=== PATIENT | male | born 1960 | race Caucasian/White ===

== ENCOUNTER 2019-04-15 10:14 | Emergency (ER) | payer BC, OTHER ==
[~2019-04-15] VITALS: Ht 177.8 cm; Wt 111.1 kg
[2019-04-15 12:09] VITALS: BP 133/93
[2019-04-15] MEDS ORDERED: ONDANSETRON ODT 4 MG TAB PO ONE (13:15)
[2019-04-15] MEDS ORDERED: MORPHINE SULFATE 10 MG/ML INJ 1ML SDV IM ONE (13:15)
== END 2019-04-15 14:07 | disposition home or self-care (01) ==
LOC: EDBD 10:14 → ER 10:14
DX: S22.41XA Multiple fractures of ribs, right side, initial encounter for closed fracture (principal); I10 Essential (primary) hypertension; Z90.49 Acquired absence of other specified parts of digestive tract; Z88.1 Allergy status to other antibiotic agents; W19.XXXA Unspecified fall, initial encounter; Y93.89 Activity, other specified; Y92.89 Other specified places as the place of occurrence of the external cause; Y99.8 Other external cause status
CPT/HCPCS: 71250; 73030; 73562; 74176; 93005; 96372; 99284; J2270; Q0162